=== PATIENT | female | born 1995 | race Caucasian/White ===

== ENCOUNTER 2019-01-22 06:55 | Emergency (ER) | payer BC, MEDICAID ==
--- NOTE | 2019-01-22 08:28 | ER Document Report ---
ED General - General Chief Complaint: Headache Stated Complaint: HEADACHE Time Seen by Provider: 01/22/19 08:25 Primary Care Provider: ELENI GILBERT MD [NO LOCAL MD] - Follow up in 3-5 days RICCARDO CARTER MD [COMMUNITY BASED STAFF] - Follow up in 3-5 days TRAVEL OUTSIDE OF THE [place] 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 Reports typically her migraines located behind her eyes and back of head, however this headache does feel bilateral frontal. patient was taking migraine medication but was taken off of them by her neurologist and neurologist has changed, she is awaiting to see a new neurologist and is on the waiting list. Patient reports she usually has migraines daily. Was taking antihistamines daily however was recently taken off of them due to her ENT wanting to do allergy shots. states headache is 7 out of 10, sharp and stabbing. Has not tried any ofqc-nmc-wsavswu medications. Patient does get her depo shot regularly,is sexually active. Patient states her headache has been occurring for the last day and has been severe, states she regularly has mild headaches patient states she has had several sinus reconstructive surgery in the past,. She is supposed to be seeing ear nose and throat and new soon however has been seen in [place] as well as [facility] and [place] in [place]. patient states that Toradol "never works for her" but she usually does better with "stronger drugs" for her migraine suppression. Patient states she usually has migraines denies fevers, chills, chest pain,palpitations, shortness of breath, dyspnea, nausea, vomiting, diar ijeoma, abdominal pain, hematuria, double vision, loss of vision, speech changes, LH, dizziness, syncope, wheezing, ST, URI, neck pain, weakness, bowel or bladder dysfunction, saddle anesthesia, numbness or tingling in bilateral upper or lower extremities equally, muscle paralysis, weakness in bilateral upper or lower extremities equally or rash. - Related Data Allergies/Adverse Reactions: No Known Allergies Allergy (Verified 01/22/19 09:04) Past Medical History - General Information source: Patient - Social History Smoking Status: Unknown if Ever Smoked Family History: Reviewed & Not Pertinent - Past Medical History Cardiac Medical History: Reports: Hx Hypertension - no meds Denies: Hx Coronary Artery Disease, Hx Heart Attack Pulmonary Medical History: Denies: Hx Asthma, Hx Bronchitis, Hx COPD, Hx Pneumonia Neurological Medical History: Reports: Hx Migraine. Denies: Hx Cerebrovascular Accident, Hx Seizures GI Medical History: Reports: Hx Irritable Bowel Musculoskeletal Medical History: Denies Hx Arthritis Past Surgical History: Denies: Hx Hysterectomy, Hx Pacemaker - Immunizations Hx Diphtheria, Pertussis, Tetanus Vaccination: Yes Review of Systems - Review of Systems Constitutional: See HPI EENT: No symptoms reported Cardiovascular: No symptoms reported Respiratory: No symptoms reported Gastrointestinal: No symptoms reported Genitourinary: No symptoms reported Female Genitourinary: No symptoms reported Musculoskeletal: No symptoms reported Skin: No symptoms reported Hematologic/Lymphatic: No symptoms reported Neurological/Psychological: See HPI Physical Exam - Vital signs Vitals: Temp Pulse Resp BP Pulse Ox 98.2 F 119 H 16 135/92 H 100 01/22/19 07:22 01/22/19 07:22 01/22/19 07:22 01/22/19 07:22 01/22/19 07:22 - Notes Notes: PHYSICAL EXAMINATION: GENERAL: Well-appearing, well-nourished and in no acute distress. HEAD: Atraumatic, normocephalic. EYES: Pupils equal round and reactive to light, extraocular movements intact, conjunctiva are normal. ENT: Nares patent, oropharynx clear without exudates. Moist mucous membranes. NECK: Normal range of motion, supple without lymphadenopathy LUNGS: Breath sounds clear to auscultation bilaterally and equal. No wheezes rales or rhonchi. HEART: Regular rate and rhythm without murmurs ABDOMEN: Soft, nontender, nondistended abdomen. No guarding, no rebound. No masses appreciated. Female : deferred Musculoskeletal: Normal range of motion, no pitting or edema. No cyanosis. NEUROLOGICAL: Cranial nerves grossly intact. Normal speech, normal gait. Normal sensory, motor exams. PERRLA, EOMI. Full motor and sensory function throughout. Drapery Cutter + 2 equal bilaterally in BUE. Tongue midline. No pronator drift. No ataxia. Neck with APROM. Raises eyebrows. Strength is 5 out of 5 in bilateral upper and lower extremities equally.Speaks in full sentences. No weakness on one side. Romberg gait steady able to walk straight line. Able to recall 5 objects. PSYCH: Normal mood, normal affect. SKIN: Warm, Dry, normal turgor, no rashes or lesions noted. 22-like and then on the other half of a flight Course - Re-evaluation Re-evalutation: 01/22/19 09:31 24-year-old female with a history of TIAs who is afebrile slightly tachycardic however is a mild distress due to pain presents for evaluation of worst headache that she has experienced in the last 2 years, is not taking any migraine medication however her neurologist left and she is awaiting to see a new neurologist Dr. jimmie Gilbert, neurologist in [place]. Patient was seeing Dr. Gilbert's office, his PA to left a couple months ago. CT head without contrast negative for any acute findings. Migraine cocktail has been given, held Toradol until after CT of head results. Patient is having no focal neurological deficit on clinical examination. Patient told this provider multiple times that she has had Toradol "to me times in the past and it does nothing for me" stated she did not morphine however Dilaudid and fentanyl typically helps. Discussed with patient that her CT findings did show chronic sinusitis, discussed the patient will treat her with a antibiotic for likely a acute sinusitis and due to her history of several reconstructive sinus surgeries, likelihood of sinusitis being high and the fact that she is not taking her seasonal allergy medication due to upcoming allergy shots by her ENT. On reevaluation, patient remained afebrile, vitals stable and in no distress. Patient resting in room, speaking calmly, did not say her headache had become worse. With second bag of IV fluids patient stated that her headache has become progressively better throughout duration of stay in the ER. Patient states that headache did reduce with two bags of IV hydration and migraine cocktail. Patient typically goes to [place] [facility] for her migraine symptoms. Discussed with patient that likely her migraines will never be completely diminished due to her extensive history of migraines along with sinusitis is, ENT and neurological past history however patient has no focal neurological deficits, laboratory findings are completely normal, CT of head does not show any abnormalities, patient has been given IV hydration as well as migraine cocktail, extensive time spent [id number] with this patient for over 25 minutes discussing migraines, how to mitigate them,the correlation of migraines and sinusitis is, antihistamines for seasonal allergies in this time of year where plans are blooming, all questions and concerns were answered by this provider, this provider went through all laboratory, radiological and clinical findings extensively. Advised to take Augmentin as directed for treating sinusitis, nasal rinses, blowing nose, migraine diary, avoiding nitrates, sleeping, dark rooms, avoiding chocolates, etc. advised to follow-up with primary care provider, neurologist and ear nose and throat doctor within the next 24-48 hours. after performing a Medical Screening Examination, I estimate there is LOW risk for ACUTE GLAUCOMA, TEMPORAL ARTERITIS, MENINGITIS, INCRANIAL HEMORRHAGE, or ISCHEMIC STROKE thus I consider the discharge disposition reasonable. I have reevaluated this patient multiple times and no significant life threatening changes are noted. The patient and I have discussed the diagnosis and risks, and we agree with discharging home with close follow-up with the understanding that symptoms and presentations can change. We also discussed returning to the Emergency Department immediately if new or worsening symptoms occur. We have discussed the symptoms which are most concerning (e.g., changing or worsening symptoms, new numbness or weakness, vomiting, fever, worse headache of life) that necessitate immediate return. 01/22/19 15:46 01/22/19 15:54 - Vital Signs Vital signs: Temp Pulse Resp BP Pulse Ox 98.1 F 108 H 16 127/83 H 100 01/22/19 12:45 01/22/19 12:45 01/22/19 12:45 01/22/19 12:45 01/22/19 12:45 - Laboratory Laboratory results interpreted by me: 01/22/19 09:05 Urine Blood SMALL H Ur Leukocyte Esterase LARGE H Discharge - Discharge Clinical Impression: Headache Acute sinusitis Qualifiers: Sinusitis location: other Recurrence: not specified as recurrent Qualified Code(s): J01.80 - Other acute sinusitis Condition: Stable Disposition: HOME, SELF-CARE Instructions: Antinausea Medication ([facility]), Intravenous Compazine for Headaches ([facility]), Use of Diphenhydramine, Headache ([facility]), Sinusitis ([facility]), Toradol Injection ([facility]) Additional Instructions: ED General - General Chief Complaint: Headache Stated Complaint: HEADACHE Time Seen by Provider: 01/22/19 08:25 Primary Care Provider: ELENI GILBERT MD [NO LOCAL MD] - Follow up in 3-5 days RICCARDO CARTER MD [COMMUNITY BASED STAFF] - Follow up in 3-5 days TRAVEL OUTSIDE OF THE [place] 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 Patient reports she had some blurred vision her right eye that occurred momentarily, states headache is 9 out of 10, sharp and stabbing. Has not tried any hfnw-gik-pedibqo medications. Patient does get her Depakote shot regularly, sexually active. Patient states her headache has been occurring for the last day and has been severe, states she regularly has mild headaches Denies fevers, chills, chest pain,palpitations, shortness of breath, dyspnea, nausea, vomiting, diarrhea, abdominal pain, hematuria, double vision, loss of vision, speech changes, LH, dizziness, syncope, wheezing, ST, URI, neck pain, weakness, bowel or bladder dysfunction, saddle anesthesia, numbness or tingling in bilateral upper or lower extremities equally, muscle paralysis, weakness in bilateral upper or lower extremities equally or rash. - Related Data Allergies/Adverse Reactions: No Known Allergies Allergy (Verified 01/22/19 09:04) Past Medical History - General Information source: Patient - Social History Smoking Status: Unknown if Ever Smoked Family History: Reviewed & Not Pertinent - Past Medical History Cardiac Medical History: Reports: Hx Hypertension - no meds Denies: Hx Coronary Artery Disease, Hx Heart Attack Pulmonary Medical History: Denies: Hx Asthma, Hx Bronchitis, Hx COPD, Hx Pneumonia Neurological Medical History: Reports: Hx Migraine. Denies: Hx Cerebrovascular Accident, Hx Seizures GI Medical History: Reports: Hx Irritable Bowel Musculoskeletal Medical History: Denies Hx Arthritis Past Surgical History: Denies: Hx Hysterectomy, Hx Pacemaker - Immunizations Hx Diphtheria, Pertussis, Tetanus Vaccination: Yes Review of Systems - Review of Systems Constitutional: See HPI EENT: No symptoms reported Cardiovascular: No symptoms reported Respiratory: No symptoms reported Gastrointestinal: No symptoms reported Genitourinary: No symptoms reported Female Genitourinary: No symptoms reported Musculoskeletal: No symptoms reported Skin: No symptoms reported Hematologic/Lymphatic: No symptoms reported Neurological/Psychological: See HPI Physical Exam - Vital signs Vitals: Temp Pulse Resp BP Pulse Ox 98.2 F 119 H 16 135/92 H 100 01/22/19 07:22 01/22/19 07:22 01/22/19 07:22 01/22/19 07:22 01/22/19 07:22 - Notes Notes: PHYSICAL EXAMINATION: GENERAL: Well-appearing, well-nourished and in no acute distress. HEAD: Atraumatic, normocephalic. EYES: Pupils equal round and reactive to light, extraocular movements intact, conjunctiva are normal. ENT: Nares patent, oropharynx clear without exudates. Moist mucous membranes. NECK: Normal range of motion, supple without lymphadenopathy LUNGS: Breath sounds clear to auscultation bilaterally and equal. No wheezes rales or rhonchi. HEART: Regular rate and rhythm without murmurs ABDOMEN: Soft, nontender, nondistended abdomen. No guarding, no rebound. No masses appreciated. Female : deferred Musculoskeletal: Normal range of motion, no pitting or edema. No cyanosis. NEUROLOGICAL: Cranial nerves grossly intact. Normal speech, normal gait. Normal sensory, motor exams. PERRLA, EOMI. Full motor and sensory function throughout. Drapery Cutter + 2 equal bilaterally in BUE. Tongue midline. No pronator drift. No ataxia. Neck with APROM. Raises eyebrows. Strength is 5 out of 5 in bilateral upper and lower extremities equally.Speaks in full sentences. No we akness on one side. Romberg gait steady able to walk straight line. Able to recall 5 objects. PSYCH: Normal mood, normal affect. SKIN: Warm, Dry, normal turgor, no rashes or lesions noted. 22-like and then on the other half of a flight Course - Re-evaluation Re-evalutation: 01/22/19 09:31 24-year-old female with a history of TIAs who is afebrile slightly tachycardic however is a mild distress due to pain presents for evaluation of worst headache that she has experienced in the last 2 years, is not taking any migraine medica tion however her neurologist left and she is awaiting to see a new neurologist Dr. jimmie Gilbert, neurologist in [place]. Patient was seeing Dr. Gilbert's office, his PA to left a couple months ago. CT head without contrast negative for any acute findings. Migraine cocktail has been given, held Toradol until after CT of head results. Patient is having no focal neurological deficit on clinical examination. Patient states that headache did reduce with IV hydration and migraine cocktail After performing a Medical Screening Examination, I estimate there is LOW risk for ACUTE GLAUCOMA, TEMPORAL ARTERITIS, MENINGITIS, INCRANIAL HEMORRHAGE, or ISCHEMIC STROKE thus I consider the discharge disposition reasonable. I have reevaluated this patient multiple times and no significant life threatening changes are noted. The patient and I have discussed the diagnosis and risks, and we agree with discharging home with close follow-up with the understanding that symptoms and presentations can change. We also discussed returning to the Emergency Department immediately if new or worsening symptoms occur. We have discussed the symptoms which are most concerning (e.g., changing or worsening symptoms, new numbness or weakness, vomiting, fever) that necessitate immediate return. - Vital Signs Vital signs: Temp Pulse Resp BP Pulse Ox 98.2 F 119 H 16 135/92 H 100 01/22/19 07:22 01/22/19 07:22 01/22/19 07:22 01/22/19 07:22 01/22/19 07:22 - Laboratory Laboratory results interpreted by me: 01/22/19 09:05 Urine Blood SMALL H Ur Leukocyte Esterase LARGE H Discharge - Discharge Clinical Impression: Headache Acute sinusitis Qualifiers: Sinusitis location: other Recurrence: not specified as recurrent Qualified Code(s): J01.80 - Other acute sinusitis Condition: Stable Disposition: HOME, SELF-CARE Instructions: Toradol Injection ([facility]), Headache ([facility]), Intravenous Compazine for Headaches ([facility]), Use of Diphenhydramine, Antinausea Medication ([facility]), Sinusitis ([facility]) Additional Instructions: Headache The physician does not feel that the headache you are experiencing has a serious underlying cause. Most headaches are due to emotional stress, with resultant muscle tension (tension headache). Occasionally, headaches are secondary to changes in the blood vessels of the scalp (vascular headache and migraine headache). Sometimes, a headache is the first symptom of another developing illness, such as a viral infection. You have no evidence of stroke, bleeding, meningitis, or other serious cause of your headache. The treatment of headaches varies with the severity and cause of the pain. Not all headaches need pain shots. In fact, there is evidence that using narcotics for headaches may make them worse in the long run. The physician will determine the therapy that's in your best interest. If you develop a fever, if the headache is different from any you've previously experienced, or if the headache progressively worsens, then call your physician at once or go to the emergency room. Sinusitis You have sinusitis, an infection of the sinus cavities of the face. The sinuses are air-filled chambers which open into the inside of the nose. Bacteria and pus fill a sinus, causing pain, drainage, and fever. Sinusitis is treated with antibiotics. Often, expectorants (to thin the sinus mucous) or decongestants (to reduce swelling) are prescribed as well. Healing requires seven to 10 days. Avoid chemical fumes, pollens, dusts, and smoke (especially cigarette smoke). Keep the air humidified in your bedroom and work area and take plenty of liquids by mouth. This condition can be serious if the infection spreads. If your symptoms worsen, or if you develop severe headache, high fever, stiff neck, or a rash, you must call the doctor or return for re-evaluation. Return immediately for any new or worsening symptoms. Follow up with primary care provider, call tomorrow to make followup appointment. Forms: Return to Work Referrals: ELENI GILBERT MD [NO LOCAL MD] - Follow up in 3-5 days RICCARDO CARTER MD [COMMUNITY BASED STAFF] - Follow up in 3-5 days ED General - General Chief Complaint: Headache Stated Complaint: HEADACHE Time Seen by Provider: 01/22/19 08:25 Primary Care Provider: ELENI GILBERT MD [NO LOCAL MD] - Follow up in 3-5 days RICCARDO CARTER MD [COMMUNITY BASED STAFF] - Follow up in 3-5 days TRAVEL OUTSIDE OF THE [place] 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 Patient reports she had some blurred vision her right eye that occurred momentarily, states headache is 9 out of 10, sharp and stabbing. Has not tried any ewyj-sow-zxdxzlj medications. Patient does get her Depakote shot regularly, sexually active. Patient states her headache has been occurring for the last day and has been severe, states she regularly has mild headaches Denies fevers, chills, chest pain,palpitations, shortness of breath, dyspnea, nausea, vomiting, diarrhea, abdominal pain, hematuria, double vision, loss of vision, speech changes, LH, dizziness, syncope, wheezing, ST, URI, neck pain, weakness, bowel or bladder dysfunction, saddle anesthesia, numbness or tingling in bilateral upper or lower extremities equally, muscle paralysis, weakness in bilateral upper or lower extremities equally or rash. - Related Data Allergies/Adverse Reactions: No Known Allergies Allergy (Verified 01/22/19 09:04) Past Medical History - General Information source: Patient - Social History Smoking Status: Unknown if Ever Smoked Family History: Reviewed & Not Pertinent - Past Medical History Cardiac Medical History: Reports: Hx Hypertension - no meds Denies: Hx Coronary Artery Disease, Hx Heart Attack Pulmonary Medical History: Denies: Hx Asthma, Hx Bronchitis, Hx COPD, Hx Pneumonia Neurological Medical History: Reports: Hx Migraine. Denies: Hx Cerebrovascular Accident, Hx Seizures GI Medical History: Reports: Hx Irritable Bowel Musculoskeletal Medical History: Denies Hx Arthritis Past Surgical History: Denies: Hx Hysterectomy, Hx Pacemaker - Immunizations Hx Diphtheria, Pertussis, Tetanus Vaccination: Yes Review of Systems - Review of Systems Constitutional: See HPI EENT: No symptoms reported Cardiovascular: No symptoms reported Respiratory: No symptoms reported Gastrointestinal: No symptoms reported Genitourinary: No symptoms reported Female Genitourinary: No symptoms reported Musculoskeletal: No symptoms reported Skin: No symptoms reported Hematologic/Lymphatic: No symptoms reported Neurological/Psychological: See HPI Physical Exam - Vital signs Vitals: Temp Pulse Resp BP Pulse Ox 98.2 F 119 H 16 135/92 H 100 01/22/19 07:22 01/22/19 07:22 01/22/19 07:22 01/22/19 07:22 01/22/19 07:22 - Notes Notes: PHYSICAL EXAMINATION: GENERAL: Well-appearing, well-nourished and in no acute distress. HEAD: Atraumatic, normocephalic. EYES: Pupils equal round and reactive to light, extraocular movements intact, conjunctiva are normal. ENT: Nares patent, oropharynx clear without exudates. Moist mucous membranes. NECK: Normal range of motion, supple without lymphadenopathy LUNGS: Breath sounds clear to auscultation bilaterally and equal. No wheezes rales or rhonchi. HEART: Regular rate and rhythm without murmurs ABDOMEN: Soft, nontender, nondistended abdomen. No guarding, no rebound. No masses appreciated. Female : deferred Musculoskeletal: Normal range of motion, no pitting or edema. No cyanosis. NEUROLOGICAL: Cranial nerves grossly intact. Normal speech, normal gait. Normal sensory, motor exams. PERRLA, EOMI. Full motor and sensory function throughout. Drapery Cutter + 2 equal bilaterally in BUE. Tongue midline. No pronator drift. No ataxia. Neck with APROM. Raises eyebrows. Strength is 5 out of 5 in bilateral upper and lower extremities equally.Speaks in full sentences. No weakness on one side. Romberg gait steady able to walk straight line. Able to recall 5 objects. PSYCH: Normal mood, normal affect. SKIN: Warm, Dry, normal turgor, no rashes or lesions noted. 22-like and then on the other half of a flight Course - Re-evaluation Re-evalutation: 01/22/19 09:31 24-year-old female with a history of TIAs who is afebrile slightly tachycardic however is a mild distress due to pain presents for evaluation of worst headache that she has experienced in the last 2 years, is not taking any migraine medication however her neurologist left and she is awaiting to see a new neurologist Dr. jimmie Gilbert, neurologist in [place]. Patient was seeing Dr. Gilbert's office, his PA to left a couple months ago. CT head without contrast negative for any acute findings. Migraine cocktail has been given, held Toradol until after CT of head results. Patient is having no focal neurological deficit on clinical examination. Patient states that headache did reduce with IV hydration and migraine cocktail After performing a Medical Screening Examination, I estimate there is LOW risk for ACUTE GLAUCOMA, TEMPORAL ARTERITIS, MENINGITIS, INCRANIAL HEMORRHAGE, or ISCHEMIC STROKE thus I consider the discharge disposition reasonable. I have reevaluated this patient multiple times and no significant life threatening changes are noted. The patient and I have discussed the diagnosis and risks, and we agree with discharging home with close follow-up with the understanding that symptoms and presentations can change. We also discussed returning to the Emergency Department immediately if new or worsening symptoms occur. We have discussed the symptoms which are most concerning (e.g., changing or worsening symptoms, new numbness or weakness, vomiting, fever) that necessitate immediate return. - Vital Signs Vital signs: Temp Pulse Resp BP Pulse Ox 98.2 F 119 H 16 135/92 H 100 01/22/19 07:22 01/22/19 07:22 01/22/19 07:22 01/22/19 07:22 01/22/19 07:22 - Laboratory Laboratory results interpreted by me: 01/22/19 09:05 Urine Blood SMALL H Ur Leukocyte Esterase LARGE H Discharge - Discharge Clinical Impression: Headache Acute sinusitis Qualifiers: Sinusitis location: other Recurrence: not specified as recurrent Qualified Code(s): J01.80 - Other acute sinusitis Condition: Stable Disposition: HOME, SELF-CARE Instructions: Toradol Injection ([facility]), Headache ([facility]), Intravenous Compazine for Headaches ([facility]), Use of Diphenhydramine, Antinausea Medication ([facility]), Sinusitis ([facility]) Additional Instructions: Headache The physician does not feel that the headache you are experiencing has a serious underlying cause. Most headaches are due to emotional stress, with resultant muscle tension (tension headache). Occasionally, headaches are secondary to changes in the blood vessels of the scalp (vascular headache and migraine headache). Sometimes, a headache is the first symptom of another developing illness, such as a viral infection. You have no evidence of stroke, bleeding, meningitis, or other serious cause of your headache. The treatment of headaches varies with the severity and cause of the pain. Not all headaches need pain shots. In fact, there is evidence that using narcotics for headaches may make them worse in the long run. The physician will determine the therapy that's in your best interest. If you develop a fever, if the headache is different from any you've previously experienced, or if the headache progressively worsens, then call your physician at once or go to the emergency room. Sinusitis You have sinusitis, an infection of the sinus cavities of the face. The sinuses are air-filled chambers which open into the inside of the nose. Bacteria and pus fill a sinus, causing pain, drainage, and fever. Sinusitis is treated with antibiotics. Often, expectorants (to thin the sinus mucous) or decongestants (to reduce swelling) are prescribed as well. Healing requires seven to 10 days. Avoid chemical fumes, pollens, dusts, and smoke (especially cigarette smoke). Keep the air humidified in your bedroom and work area and take plenty of liquids by mouth. This condition can be serious if the infection spreads. If your symptoms worsen, or if you develop severe headache, high fever, stiff neck, or a rash, you must call the doctor or return for re-evaluation. Return immediately for any new or worsening symptoms. Follow up with primary care provider, call tomorrow to make followup appointment. Forms: Return to Work Referrals: ELENI GILBERT MD [NO LOCAL MD] - Follow up in 3-5 days RICCARDO CARTER MD [COMMUNITY BASED STAFF] - Follow up in 3-5 days ED General - General Chief Complaint: Headache Stated Complaint: HEADACHE Time Seen by Provider: 01/22/19 08:25 Primary Care Provider: ELENI GILBERT MD [NO LOCAL MD] - Follow up in 3-5 days RICCARDO CARTER MD [COMMUNITY BASED STAFF] - Follow up in 3-5 days TRAVEL OUTSIDE OF THE [place] 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 Patient reports she had some blurred vision her right eye that occurred momentarily, states headache is 9 out of 10, sharp and stabbing. Has not tried any [id number] medications. Patient does get her Depakote shot regularly, sexually active. Patient states her headache has been occurring for the last day and has been severe, states she regularly has mild headaches Denies fevers, chills, chest pain,palpitations, shortness of breath, dyspnea, nausea, vomiting, diarrhea, abdominal pain, hematuria, double vision, loss of vision, speech changes, LH, dizziness, syncope, wheezing, ST, URI, neck pain, weakness, bowel or bladder dysfunction, saddle anesthesia, numbness or tingling in bilateral upper or lower extremities equally, muscle paralysis, weakness in bilateral upper or lower extremities equally or rash. - Related Data Allergies/Adverse Reactions: No Known Allergies Allergy (Verified 01/22/19 09:04) Past Medical History - General Information source: Patient - Social History Smoking Status: Unknown if Ever Smoked Family History: Reviewed & Not Pertinent - Past Medical History Cardiac Medical History: Reports: Hx Hypertension - no meds Denies: Hx Coronary Artery Disease, Hx Heart Attack Pulmonary Medical History: Denies: Hx Asthma, Hx Bronchitis, Hx COPD, Hx Pneumonia Neurological Medical History: Reports: Hx Migraine. Denies: Hx Cerebrovascular Accident, Hx Seizures GI Medical History: Reports: Hx Irritable Bowel Musculoskeletal Medical History: Denies Hx Arthritis Past Surgical History: Denies: Hx Hysterectomy, Hx Pacemaker - Immunizations Hx Diphtheria, Pertussis, Tetanus Vaccination: Yes Review of Systems - Review of Systems Constitutional: See HPI EENT: No symptoms reported Cardiovascular: No symptoms reported Respiratory: No symptoms reported Gastrointestinal: No symptoms reported Genitourinary: No symptoms reported Female Genitourinary: No symptoms reported Musculoskeletal: No symptoms reported Skin: No symptoms reported Hematologic/Lymphatic: No symptoms reported Neurological/Psychological: See HPI Physical Exam - Vital signs Vitals: Temp Pulse Resp BP Pulse Ox 98.2 F 119 H 16 135/92 H 100 01/22/19 07:22 01/22/19 07:22 01/22/19 07:22 01/22/19 07:22 01/22/19 07:22 - Notes Notes: PHYSICAL EXAMINATION: GENERAL: Well-appearing, well-nourished and in no acute distress. HEAD: Atraumatic, normocephalic. EYES: Pupils equal round and reactive to light, extraocular movements intact, conjunctiva are normal. ENT: Nares patent, oropharynx clear without exudates. Moist mucous membranes. NECK: Normal range of motion, supple without lymphadenopathy LUNGS: Breath sounds clear to auscultation bilaterally and equal. No wheezes rales or rhonchi. HEART: Regular rate and rhythm without murmurs ABDOMEN: Soft, nontender, nondistended abdomen. No guarding, no rebound. No masses appreciated. Female : deferred Musculoskeletal: Normal range of motion, no pitting or edema. No cyanosis. NEUROLOGICAL: Cranial nerves grossly intact. Normal speech, normal gait. Normal sensory, motor exams. PERRLA, EOMI. Full motor and sensory function throughout. Drapery Cutter + 2 equal bilaterally in BUE. Tongue midline. No pronator drift. No ataxia. Neck with APROM. Raises eyebrows. Strength is 5 out of 5 in bilateral upper and lower extremities equally.Speaks in full sentences. No weakness on one side. Romberg gait steady able to walk straight line. Able to recall 5 objects. PSYCH: Normal mood, normal affect. SKIN: Warm, Dry, normal turgor, no rashes or lesions noted. 22-like and then on the other half of a flight Course - Re-evaluation Re-evalutation: 01/22/19 09:31 24-year-old female with a history of TIAs who is afebrile slightly tachycardic however is a mild distress due to pain presents for evaluation of worst headache that she has experienced in the last 2 years, is not taking any migraine medication however her neurologist left and she is awaiting to see a new neurologist Dr. jimmie Gilbert, neurologist in [place]. Patient was seeing Dr. Gilbert's office, his PA to left a couple months ago. CT head without contrast negative for any acute findings. Migraine cocktail has been given, held Toradol until after CT of head results. Patient is having no focal neurological deficit on clinical examination. Patient states that headache did reduce with IV hydration and migraine cocktail After performing a Medical Screening Examination, I estimate there is LOW risk for ACUTE GLAUCOMA, TEMPORAL ARTERITIS, MENINGITIS, INCRANIAL HEMORRHAGE, or ISCHEMIC STROKE thus I consider the discharge disposition reasonable. I have reevaluated this patient multiple times and no significant life threatening changes are noted. The patient and I have discussed the diagnosis and risks, and we agree with discharging home with close follow-up with the understanding that symptoms and presentations can change. We also discussed returning to the Emergency Department immediately if new or worsening symptoms occur. We have discussed the symptoms which are most concerning (e.g., changing or worsening symptoms, new numbness or weakness, vomiting, fever) that necessitate immediate return. - Vital Signs Vital signs: Temp Pulse Resp BP Pulse Ox 98.2 F 119 H 16 135/92 H 100 01/22/19 07:22 01/22/19 07:22 01/22/19 07:22 01/22/19 07:22 01/22/19 07:22 - Laboratory Laboratory results interpreted by me: 01/22/19 09:05 Urine Blood SMALL H Ur Leukocyte Esterase LARGE H Discharge - Discharge Clinical Impression: Headache Acute sinusitis Qualifiers: Sinusitis location: other Recurrence: not specified as recurrent Qualified Code(s): J01.80 - Other acute sinusitis Condition: Stable Disposition: HOME, SELF-CARE Instructions: Toradol Injection ([facility]), Headache ([facility]), Intravenous Compazine for Headaches ([facility]), Use of Diphenhydramine, Antinausea Medication ([facility]), Sinusitis ([facility]) Additional Instructions: Headache The physician does not feel that the headache you are experiencing has a serious underlying cause. Most headaches are due to emotional stress, with resultant muscle tension (tension headache). Occasionally, headaches are secondary to changes in the blood vessels of the scalp (vascular headache and migraine headache). Sometimes, a headache is the first symptom of another developing illness, such as a viral infection. You have no evidence of stroke, bleeding, meningitis, or other serious cause of your headache. The treatment of headaches varies with the severity and cause of the pain. Not all headaches need pain shots. In fact, there is evidence that using narcotics for headaches may make them worse in the long run. The physician will determine the therapy that's in your best interest. If you develop a fever, if the headache is different from any you've previously experienced, or if the headache progressively worsens, then call your physician at once or go to the emergency room. Sinusitis You have sinusitis, an infection of the sinus cavities of the face. The sinuses are air-filled chambers which open into the inside of the nose. B acteria and pus fill a sinus, causing pain, drainage, and fever. Sinusitis is treated with antibiotics. Often, expectorants (to thin the sinus mucous) or decongestants (to reduce swelling) are prescribed as well. Healing requires seven to 10 days. Avoid chemical fumes, pollens, dusts, and smoke (especially cigarette smoke). Keep the air humidified in your bedroom and work area and take plenty of liquids by mouth. This condition can be serious if the infection spreads. If your symptoms worsen, or if you develop severe headache, high fever, stiff neck, or a rash, you must call the doctor or return for re-evaluation. Return immediately for any new or worsening symptoms. Follow up with primary care provider, call tomorrow to make followup appointment. Forms: Return to Work Referrals: ELENI GILBERT MD [NO LOCAL MD] - Follow up in 3-5 days RICCARDO CARTER MD [COMMUNITY BASED STAFF] - Follow up in 3-5 days Headache The physician does not feel that the headache you are experiencing has a serious underlying cause. Most headaches are due to emotional stress, with resultant muscle tension (tension headache). Occasionally, headaches are secondary to changes in the blood vessels of the scalp (vascular headache and migraine headache). Sometimes, a headache is the first symptom of another developing illness, such as a viral infection. You have no evidence of stroke, bleeding, meningitis, or other serious cause of your headache. The treatment of headaches varies with the severity and cause of the pain. Not all headaches need pain shots. In fact, there is evidence that using narcotics for headaches may make them worse in the long run. The physician will determine the therapy that's in your best interest. If you develop a fever, if the headache is different from any you've previously experienced, or if the headache progressively worsens, then call your physician at once or go to the emergency room. Sinusitis You have sinusitis, an infection of the sinus cavities of the face. The sinuses are air-filled chambers which open into the inside of the nose. Bacteria and pus fill a sinus, causing pain, drainage, and fever. Sinusitis is treated with antibiotics. Often, expectorants (to thin the sinus mucous) or decongestants (to reduce swelling) are prescribed as well. Healing requires seven to 10 days. Avoid chemical fumes, pollens, dusts, and smoke (especially cigarette smoke). Keep the air humidified in your bedroom and work area and take plenty of liquids by mouth. This condition can be serious if the infection spreads. If your symptoms worsen, or if you develop severe headache, high fever, stiff neck, or a rash, you must call the doctor or return for re-evaluation. Return immediately for any new or worsening symptoms. Follow up with primary care provider, call tomorrow to make followup appointment. Prescriptions: Amox Tr/Potassium Clavulanate [Augmentin 875-125 Tablet] 1 tab PO BID 10 Days #20 tablet Forms: Return to Work Referrals: ELENI GILBERT MD [NO LOCAL MD] - Follow up in 3-5 days RICCARDO CARTER MD [COMMUNITY BASED STAFF] - Follow up in 3-5 days SRIDEVI MADISON DO [ASSOCIATE] - Follow up in 3-5 days
[2019-01-22] MEDS ORDERED: ONDANSETRON HCL INJ/PF 4 MG/2 ML SDV IV ONE (08:32)
[2019-01-22] MEDS ORDERED: DIPHENHYDRAMINE HCL 50 MG/ML VIAL IV ONE (08:32)
[2019-01-22] MEDS ORDERED: NORMAL SALINE 1000 ML 1,000 ML IV PRN ×2 (08:32→10:47)
[2019-01-22 09:22] LABS: APPEARANCE,URINE CLOUDY; BILIRUBIN,URINE NEGATIVE (NEGATIVE); COLOR,URINE YELLOW; GLUCOSE, URINE NEGATIVE (NEGATIVE); KETONES,URINE NEGATIVE (NEGATIVE); LEUKOCYTE ESTERASE,URINE LARGE (NEGATIVE); NITRITE,URINE NEGATIVE (NEGATIVE); PROTEIN,URINE NEGATIVE (NEGATIVE); URINE SPECIFIC GRAVITY 1.011; UROBILINOGEN,URINE NEGATIVE mg/dL (<2.0)
--- NOTE | 2019-01-22 09:49 | RADIOLOGY REPORT (SQ) ---
EXAM DESCRIPTION: CT HEAD WITHOUT COMPLETED DATE/TIME: 01/22/2019 9:11 am REASON FOR STUDY: worst BORGES in 2 years, hx of 4 TIAs COMPARISON: 12/16/2014. TECHNIQUE: Axial images acquired through the brain without intravenous contrast. Images reviewed wi th bone, brain and subdural windows. Additional sagittal and coronal reconstructions were generated. Images stored on PACS. All CT scanners at this facility use dose modulation, iterative reconstruction, and/or weight based d osing when appropriate to reduce radiation dose to as low as reasonably achievable (ALARA). [facility]: Dose Right [facility]: CareDose [facility]: Dose Right [facility]: Teradose 4D [facility]: SageFire RADIATION DOSE: CT Rad equipment meets quality standard of care and radiation dose reduction techniq ues were employed. CTDIvol: 53.2 mGy. DLP: 1070 mGy-cm. mGy. LIMITATIONS: None. FINDINGS: VENTRICLES: Normal size and contour. CEREBRUM: No masses. No hemorrhage. No midline shift. No evidence for acute infarction. Normal gra y/white matter differentiation. No areas of low density in the white matter. CEREBELLUM: No masses. No hemorrhage. No alteration of density. No evidence for acute infarction. EXTRAAXIAL SPACES: No fluid collections. No masses. ORBITS AND GLOBE: No intra- or extraconal masses. Normal contour of globe without masses. CALVARIUM: No fracture. PARANASAL SINUSES: Mucous membrane thickening in the left maxillary sinus. SOFT TISSUES: No mass or hematoma. OTHER: No other significant finding. IMPRESSION: NORMAL BRAIN CT WITHOUT CONTRAST. LEFT MAXILLARY SINUS DISEASE. EVIDENCE OF ACUTE STROKE: NO. COMMENT: Quality ID # [id number]: Final reports with documentation of one or more dose reduction techniques (e.g., Automated exposure control, adjustment of the mA and/or kV according to patient size, use of iterative reconstruction technique) TECHNICAL DOCUMENTATION: JOB ID: [id number] [employer]- All Rights Reserved Reading location - IP/workstation name: [email or web address]
[2019-01-22] MEDS ORDERED: KETOROLAC TROMETHAMINE INJ/PF 30 MG/1 ML SDV IV ONE (10:46)
[2019-01-22] MEDS ORDERED: PROCHLORPERAZINE EDISYLATE INJ 10 MG/2 ML VIAL IV ONE (10:47)
[2019-01-22 12:49] VITALS: BP 127/83
== END 2019-01-22 13:00 | disposition home or self-care (01) ==
LOC: ER 06:55
DX: J01.80 Other acute sinusitis (principal); R51 Headache; I10 Essential (primary) hypertension; Z86.73 Personal history of transient ischemic attack (TIA), and cerebral infarction without residual deficits
CPT/HCPCS: 99284; 96361; 96374; 96375; 81025; 81001; 70450; J1200; J1885; J0780; J2405; J7030

== ENCOUNTER 2019-04-14 23:59 | Emergency (ER) | payer BC ==
--- NOTE | 2019-04-15 02:43 | ER Document Report ---
ED Medical Screen (RME) - General Chief Complaint: Vaginal Pain Stated Complaint: POSSIBLE VAGINAL INJURY Time Seen by Provider: 04/15/19 02:42 Mode of Arrival: Ambulatory Information source: Patient Notes: 24-year-old female presented to ED for complaint of vaginal tear during sexual intercourse tonight around 11:00. She states she is not bleeding at this time. She states the pain is only been able to get walks to move when she is sitting still the pain is about a 1/5. Patient is alert oriented respirations regular and unlabored speaking in full sentences does walk with a even steady gait. I have greeted and performed a rapid initial assessment of this patient. A comprehensive ED assessment and evaluation of the patient, analysis of test results and completion of medical decision making process will be conducted by an additional ED providers. Dictation of this chart was performed using voice recognition software; therefore, there may be some unintended grammatical errors. TRAVEL OUTSIDE OF THE [place] IN LAST 30 DAYS: No - Related Data Allergies/Adverse Reactions: No Known Allergies Allergy (Verified 01/22/19 09:04) Past Medical History - Past Medical History Cardiac Medical History: Reports: Hx Hypertension - no meds Denies: Hx Coronary Artery Disease, Hx Heart Attack Pulmonary Medical History: Denies: Hx Asthma, Hx Bronchitis, Hx COPD, Hx Pneumonia Neurological Medical History: Reports: Hx Migraine. Denies: Hx Cerebrovascular Accident, Hx Seizures Renal/ Medical History: Denies: Hx Peritoneal Dialysis GI Medical History: Reports: Hx Irritable Bowel Musculoskeltal Medical History: Denies Hx Arthritis Past Surgical History: Denies: Hx Hysterectomy, Hx Pacemaker - Immunizations Hx Diphtheria, Pertussis, Tetanus Vaccination: Yes Physical Exam - Vital signs Vitals: Temp Pulse Resp BP Pulse Ox 97.9 F 101 H 20 150/93 H 97 04/15/19 00:46 04/15/19 00:46 04/15/19 00:46 04/15/19 00:46 04/15/19 00:46 Course - Vital Signs Vital signs: Temp Pulse Resp BP Pulse Ox 97.9 F 101 H 20 150/93 H 97 04/15/19 00:46 04/15/19 00:46 04/15/19 00:46 04/15/19 00:46 04/15/19 00:46
[2019-04-15] MEDS ORDERED: LIDOCAINE 1%/EPINEPHRINE INJ 20 ML VIAL INJ ONE (04:24)
--- NOTE | 2019-04-15 04:29 | ER Document Report ---
ED General - General Chief Complaint: Vaginal Pain Stated Complaint: POSSIBLE VAGINAL INJURY Time Seen by Provider: 04/15/19 02:42 Primary Care Provider: [facility] [Provider Group] - Follow up in 3-5 days Mode of Arrival: Ambulatory TRAVEL OUTSIDE OF THE [place] IN LAST 30 DAYS: No - HPI Notes: Patient is a 24-year-old female that presents to the emergency department for chief complaint of vaginal laceration. Patient states she was having intercourse this evening around 11 PM when she sustained a vaginal laceration. Patient was injured with penile penetration. She states there was a large amount of bleeding including pulling on the floor. She states that the bleeding has stopped now but begins again when she begins to urinate. She does report pain with urination and severe pain in her vaginal area. Her pain is sharp and worse with movement. She has not taken medication for the pain. Past Medical History: Tachycardia, hyperthyroidism Past Surgical History: Sinus surgery Social History: Daily tobacco. Denies drugs and alcohol Family History: Reviewed and noncontributory for presenting illness Allergies: Reviewed, see documented allergy list. REVIEW OF SYSTEMS: CONSTITUTIONAL : No fever No chills No diaphoresis No recent illness EENT: No vision changes No congestion No sore throat CARDIOVASCULAR: No chest pain No palpitations RESPIRATORY: No shortness of breath No cough No difficulty breathing GASTROINTESTINAL: No abdominal pain No nausea No vomiting No diarrhea GENITOURINARY: dysuria Vaginal laceration No hematuria No difficulty urinating MUSCULOSKELETAL: No back pain No leg pain No arm pain SKIN: No rashes No lesions LYMPHATIC: No swollen, enlarged glands. NEUROLOGICAL: No lightheadedness No headache No weakness No paresthesias PSYCHIATRIC: No anxiety No depression PHYSICAL EXAMINATION: Vital signs reviewed, nursing noted reviewed. GENERAL: Well-appearing, well-nourished and in no acute distress. HEAD: Atraumatic, normocephalic. EYES: Eyes appear normal, extraocular movements intact, sclera anicteric, conjunctiva are normal. ENT: nares patent, oropharynx clear without exudates. Moist mucous membranes. NECK: Normal range of motion, supple without lymphadenopathy LUNGS: Breath sounds clear to auscultation bilaterally and equal. No wheezes rales or rhonchi. HEART: Regular rate and rhythm without murmurs ABDOMEN: Soft, nontender, normoactive bowel sounds. No rebound, guarding, or rigidity. No masses appreciated. : 3.0 cm linear right labial laceration just lateral to urethral meatus and clitoris. No active bleeding. No internal vaginal trauma EXTREMITIES: Nontender, good range of motion, no pitting or edema. NEUROLOGICAL: No focal neurological deficits. Moves all extremities spontaneously Motor and sensory grossly intact on exam. PSYCH: Normal mood, normal affect. SKIN: Warm, Dry, normal turgor, no rashes or lesions noted on exposed skin - Related Data Allergies/Adverse Reactions: No Known Allergies Allergy (Verified 01/22/19 09:04) Past Medical History - General Information source: Patient - Social History Smoking Status: Current Every Day Smoker Family History: Reviewed & Not Pertinent - Past Medical History Cardiac Medical History: Reports: Hx Hypertension - no meds Denies: Hx Coronary Artery Disease, Hx Heart Attack Pulmonary Medical History: Denies: Hx Asthma, Hx Bronchitis, Hx COPD, Hx Pneumonia Neurological Medical History: Reports: Hx Migraine. Denies: Hx Cerebrovascular Accident, Hx Seizures Renal/ Medical History: Denies: Hx Peritoneal Dialysis GI Medical History: Reports: Hx Irritable Bowel Musculoskeletal Medical History: Denies Hx Arthritis Past Surgical History: Denies: Hx Hysterectomy, Hx Pacemaker - Immunizations Hx Diphtheria, Pertussis, Tetanus Vaccination: Yes Physical Exam - Vital signs Vitals: Temp Pulse Resp BP Pulse Ox 97.9 F 101 H 20 150/93 H 97 04/15/19 00:46 04/15/19 00:46 04/15/19 00:46 04/15/19 00:46 04/15/19 00:46 Course - Re-evaluation Re-evalutation: 04/15/19 04:27 Vitals reviewed. Nursing notes reviewed. Patient was given Motrin for pain control. She does have a laceration to her right labia that is not currently bleeding but is requiring suture repair. - Vital Signs Vital signs: Temp Pulse Resp BP Pulse Ox 97.9 F 101 H 20 150/93 H 97 04/15/19 00:46 04/15/19 00:46 04/15/19 00:46 04/15/19 00:46 04/15/19 00:46 Procedures - Laceration/Wound Repair Labia Time completed: 05:05 Wound length (cm): 3.0 Wound's Depth, Shape: Linear Laceration pre-procedure: Sterile PPE donned, Sterile drapes applied, Shur-Clens applied Anesthetic type: 1% Lidocaine w/epi Volume Anesthetic (mLs): 6 Wound explored: Clean Wound Repaired With: Sutures Suture Size/Type: Other - 3-0 chromic gut Number of Sutures: 6 Layer Closure?: No Post-procedure NV exam normal: Yes Complications: No Notes: 04/15/19 05:10 Patient tolerated well, wound edges well approximated with no active bleeding Discharge - Discharge Clinical Impression: Laceration of labial mucosa without complication Qualifiers: Encounter type: initial encounter Qualified Code(s): S01.512A - Laceration without foreign body of oral cavity, initial encounter Condition: Stable Disposition: HOME, SELF-CARE Instructions: Laceration Care ([facility]) Additional Instructions: Please return to the emergency department if you have any worsening, or concern of your symptoms. Please return to the emergency department if you develop chest pain, difficulty breathing, severe abdominal pain, or ongoing vomiting. Please follow-up with your primary care physician in 2-3 days and any other recommended physicians. If prescribed, take all medications as directed. If you have any questions or concerns do not hesitate to return the emergency department for evaluation. The sutures that were placed today are dissolvable and do not need to be removed Referrals: [facility] [Provider Group] - Follow up in 3-5 days
[2019-04-15] MEDS ORDERED: IBUPROFEN 600 MG TABLET PO ONE (04:30)
[2019-04-15 05:30] VITALS: BP 146/98
== END 2019-04-15 05:30 | disposition home or self-care (01) ==
LOC: ER 23:59
DX: S31.41XA Laceration without foreign body of vagina and vulva, initial encounter (principal); R10.2 Pelvic and perineal pain; R30.0 Dysuria; X58.XXXA Exposure to other specified factors, initial encounter; Y92.009 Unspecified place in unspecified non-institutional (private) residence as the place of occurrence of the external cause; F17.200 Nicotine dependence, unspecified, uncomplicated
CPT/HCPCS: 99283; 12002; J3490

== ENCOUNTER 2020-10-01 16:37 | Emergency (ER) | payer SELFPAY ==
[2020-10-01 16:54] VITALS: BP 130/85
--- NOTE | 2020-10-01 17:32 | ER Document Report ---
ED Medical Screen (RME) - General Chief Complaint: Dizziness Stated Complaint: DIZZINESS Time Seen by Provider: 10/01/20 17:14 TRAVEL OUTSIDE OF THE [place] IN LAST 30 DAYS: No - HPI Notes: Patient is a 25 y/o female with HTN and tachycardia who was brought in by EMS for shortness of breath and chest pressure. Patient states she vomited once and immediately after became short of breath with a heaviness in her chest and became numb all over. She states these symptoms lasted about 45 minutes. She took her BP during the episodes and it measured 190/117. While in route to the hospital she states she began to experience a headache and vision changes that she describes as her peripheral vision being "black". She states her vision is slowly starting to improve. - Related Data Allergies/Adverse Reactions: No Known Allergies Allergy (Verified 01/22/19 09:04) Past Medical History - Past Medical History Cardiac Medical History: Reports: Hx Hypertension - no meds Denies: Hx Coronary Artery Disease, Hx Heart Attack Pulmonary Medical History: Denies: Hx Asthma, Hx Bronchitis, Hx COPD, Hx Pneumonia Neurological Medical History: Reports: Hx Migraine. Denies: Hx Cerebrovascular Accident, Hx Seizures Renal/ Medical History: Denies: Hx Peritoneal Dialysis GI Medical History: Reports: Hx Irritable Bowel Musculoskeltal Medical History: Denies Hx Arthritis Past Surgical History: Denies: Hx Hysterectomy, Hx Pacemaker - Immunizations Hx Diphtheria, Pertussis, Tetanus Vaccination: Yes Physical Exam - Vital signs Vitals: Temp Pulse Resp BP Pulse Ox 98.1 F 102 H 16 130/85 H 98 10/01/20 16:53 10/01/20 16:53 10/01/20 16:53 10/01/20 16:53 10/01/20 16:53 Interpretation: Tachycardic - Respiratory Respiratory status: No respiratory distress Breath sounds: Normal - Cardiovascular Rhythm: Tachycardia Heart sounds: Normal auscultation Course - Re-evaluation Re-evalutation: 10/01/20 17:20 I have greeted and performed a rapid initial assessment of this patient. A comprehensive ED assessment and evaluation of the patient, analysis of test results and completion of medical decision making process will be conducted by an additional ED providers. 10/01/20 17:26 The patient has chosen to leave the facility against medical advice. The relevant issues have been reviewed and discussed with the patient and family at the bedside. At the time of this assessment there is no indication for involuntary commitment. The patient is alert, oriented, and able to express clearly their reasoning for not wanting to remain in the emergency department for further treatment. The patient is not clinically psychotic, intoxicated, and denies and suicidal ideation. Differential or suspected diagnoses based on medical screening exam: pulmonary embolism, acute CO, anxiety attack and many more emergent etiologies as patient left prior to any workup. The patient is aware of the concerning diagnoses and acknowledges understanding of the reasons for the following recommendations: to stay here in the emergency department and have a full workup. The following recommendations/services were offered and refused: blood work, urinalysis, chest XR, and EKG The following risks were explained: , permanent disability, loss of function Clinical impression: Patient is competent to make decisions regarding the medical that is being offered. - Vital Signs Vital signs: Temp Pulse Resp BP Pulse Ox 98.1 F 102 H 16 130/85 H 98 10/01/20 16:53 10/01/20 16:53 10/01/20 16:53 10/01/20 16:53 10/01/20 16:53 Doctor's Discharge - Discharge Disposition: AGAINST MEDICAL ADVICE
== END 2020-10-01 17:35 | disposition left against medical advice (07) ==
LOC: ER 16:37
DX: R42 Dizziness and giddiness (principal); R06.02 Shortness of breath; R07.9 Chest pain, unspecified; R00.0 Tachycardia, unspecified
CPT/HCPCS: 99282